=== PATIENT | female | born 1985 | race Caucasian/White ===

== ENCOUNTER 2016-09-19 19:40 | Emergency (ER) | payer OTHER ==
[~2016-09-19] VITALS: Ht 157.5 cm; Wt 56.7 kg
[2016-09-19 19:52] VITALS: BP 133/86
== END 2016-09-19 20:44 | disposition home or self-care (01) ==
LOC: ER 19:44
DX: J02.0 Streptococcal pharyngitis (principal); F17.200 Nicotine dependence, unspecified, uncomplicated
CPT/HCPCS: 99283; A4606; Z7610

== ENCOUNTER 2017-06-22 14:53 | Emergency (ER) | payer OTHER ==
[~2017-06-22] VITALS: Ht 157.5 cm; Wt 67.1 kg
[2017-06-22 14:53] VITALS: BP 131/95
[2017-06-22] MEDS ORDERED: NAPROXEN 250 MG TABLET ONE (15:28)
[2017-06-22] MEDS ORDERED: NAPROXEN 250 MG TABLET PO ONE (15:30)
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
== END 2017-06-22 16:39 | disposition home or self-care (01) ==
LOC: ER 14:54
DX: S93.602A Unspecified sprain of left foot, initial encounter (principal); D64.9 Anemia, unspecified; X58.XXXA Exposure to other specified factors, initial encounter; Y93.89 Activity, other specified; Y92.89 Other specified places as the place of occurrence of the external cause; Y99.8 Other external cause status
CPT/HCPCS: 73630; 99284; A4606; Z7610

== ENCOUNTER 2017-08-21 22:26 | Emergency (ER) | payer OTHER ==
[~2017-08-21] VITALS: Ht 157.5 cm; Wt 58.5 kg
[2017-08-21] MEDS ORDERED: LIDOCAINE /MPF 1% VIAL 5 ML VIAL ONE (22:58)
[2017-08-21] MEDS ORDERED: LIDOCAINE /MPF 1% VIAL 5 ML VIAL TP ONE (23:00)
[2017-08-21] MEDS ORDERED: TDAP [DIPH/PERTUSSIS/TET] 0.5 ML VIAL IM ONE ×2 (23:00→23:01)
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
--- NOTE | 2017-08-22 00:40 | NUR ---
EXPLAINING D/C INSTRUCTIONS
[2017-08-22] MEDS ORDERED: GELATIN SPONGE,ABSORBABLE 1 SPONGE SPONGE TP ONE (00:47)
[2017-08-22 00:56] VITALS: BP 141/93
== END 2017-08-22 00:57 | disposition home or self-care (01) ==
LOC: ER 22:26
DX: S68.115A Complete traumatic metacarpophalangeal amputation of left ring finger, initial encounter (principal); R58 Hemorrhage, not elsewhere classified; D64.9 Anemia, unspecified; F10.10 Alcohol abuse, uncomplicated; W26.8XXA Contact with other sharp object(s), not elsewhere classified, initial encounter; Y93.89 Activity, other specified; Y92.89 Other specified places as the place of occurrence of the external cause; Y99.8 Other external cause status
CPT/HCPCS: 11730; 90471; 90715; 99283; A4606; J3490; Z7610

== ENCOUNTER 2021-10-13 15:14 | Emergency (ER) | payer OTHER ==
[~2021-10-13] VITALS: Ht 154.9 cm; Wt 56.7 kg
--- NOTE | 2021-10-13 15:32 | NUR ---
SENT TO ER BED 10. BIB C/O R KNEE PAIN PAIN AND SWELLING SINCE TUESDAY.
[2021-10-13] MEDS ORDERED: KETOROLAC TROMETHAMINE INJ 30 MG/ML VIAL ONE (15:51)
[2021-10-13] MEDS ORDERED: KETOROLAC TROMETHAMINE INJ 60 MG/2 ML VIAL IM ONE (16:00)
--- NOTE | 2021-10-13 16:01 | NUR ---
URINE COLLECTED AND SENT
--- NOTE | 2021-10-13 16:50 | NUR ---
X RAY AT BEDSIDE
[2021-10-13] MEDS ORDERED: PANT40TA2 PO (17:40)
[2021-10-13] MEDS ORDERED: AMLO10TA4 PO (17:40)
[2021-10-13] MEDS ORDERED: ATOR40TA PO (17:40)
[2021-10-13] MEDS ORDERED: NAPR220T66 PO (17:40)
[2021-10-13] MEDS ORDERED: ALLO100T PO (17:40)
[2021-10-13] MEDS ORDERED: NAPR500T6 PO (18:22)
--- NOTE | 2021-10-13 18:29 | NUR ---
Patient discharged to home in stable condition. Written and verbal after care instructions given. Patient verbalizes understanding of instruction.
[2021-10-13 18:30] VITALS: BP 138/94
== END 2021-10-13 18:30 | disposition home or self-care (01) ==
LOC: ER 15:19
DX: M25.461 Effusion, right knee (principal); M22.2X1 Patellofemoral disorders, right knee; M25.561 Pain in right knee; R93.6 Abnormal findings on diagnostic imaging of limbs; Z86.2 Personal history of diseases of the blood and blood-forming organs and certain disorders involving the immune mechanism; Z87.828 Personal history of other (healed) physical injury and trauma
CPT/HCPCS: 73564; 84703; 96372; 99283; J1885